=== PATIENT | female | born 1960 | race Caucasian/White ===

== ENCOUNTER → 2016-07-29 | Outpatient (CLI) | payer BC | END | disposition home or self-care (01) | LOC: CDC 14:03 | DX: I49.9 Cardiac arrhythmia, unspecified (principal); M54.12 Radiculopathy, cervical region; Z88.2 Allergy status to sulfonamides | CPT/HCPCS: 93000 ==

== ENCOUNTER 2017-11-26 14:11 | Emergency (ER) | payer SELFPAY ==
[~2017-11-26] VITALS: Ht 172.7 cm; Wt 70.7 kg
[2017-11-26 18:03] LABS: BASOPHIL (%) 0.3 % (0-1); EOSINOPHIL (%) 1.3 % (0-5); EOSINOPHIL COUNT 0.1 K/uL (0-0.3); HEMATOCRIT 37.2 % (36.0-46.0); HEMOGLOBIN 12.6 G/DL (11.9-15.5); IMMATURE GRANULOCYTE (%) 0.2 % (0.0-0.7); LYMPHOCYTE (%) 34.5 % (15-42); LYMPHOCYTE COUNT 3.5 K/uL (1.0-2.8); MCHC 33.9 G/DL (30.0-36.0); MCV 91.6 FL (83-99); MONOCYTE (%) 5.7 % (3-12); MONOCYTE COUNT 0.6 K/uL (0-0.8); NEUTROPHIL COUNT 5.9 K/uL (1.8-6.4); PLATELET COUNT 189 K/uL (156-360); RBC DIS.WIDTH-CV 13.4 % (11.8-14.6); RBC DIS.WIDTH-SD 45.6 % (39-53); RED BLOOD COUNT 4.06 M/uL (3.80-5.20); WHITE BLOOD COUNT 10.2 K/uL (4.1-10.2)
[2017-11-26 18:12] LABS: CHLORIDE 107 mEq/L (99-109); POTASSIUM 3.9 mEq/L (3.7-5.4); SODIUM 143 mEq/L (136-147)
[2017-11-26 18:13] LABS: GLUCOSE 104 mg/dL (70-99)
[2017-11-26 18:17] LABS: CREATININE 0.8 mg/dL (0.6-1.3); GFR ESTIMATE (CALCULATED) > 59 mL/min/
[2017-11-26 18:18] LABS: UREA NITROGEN (BUN) 9 mg/dL (9-23)
[2017-11-26] MEDS ORDERED: MEDROL DOSEPAK4 MG PO (21:32)
[2017-11-26 21:49] VITALS: BP 107/72
== END 2017-11-26 21:49 | disposition home or self-care (01) ==
LOC: EME 14:11
PROVIDERS: Emergency Medicine
DX: S54.02XA Injury of ulnar nerve at forearm level, left arm, initial encounter (principal); M21.332 Wrist drop, left wrist; X58.XXXA Exposure to other specified factors, initial encounter; M48.02 Spinal stenosis, cervical region; M50.21 Other cervical disc displacement, high cervical region; Z98.1 Arthrodesis status; F17.200 Nicotine dependence, unspecified, uncomplicated
CPT/HCPCS: 70450; 72141; 80048; 85025; 99281; 99284; J1100